=== PATIENT | female | born 1945 | race Caucasian/White ===

== ENCOUNTER 2017-01-09 09:37 | Inpatient (IN) ==
[2017-01-09 10:18] VITALS: BMI 29.7
[2017-01-09 10:51] LABS: BASOPHILS # (AUTO) 0.1 K/uL (0-0.2); BASOPHILS % (AUTO) 0.5 % (0.0-3.0); EOSINOPHILS # (AUTO) 0.2 K/ul (0.0-0.7); EOSINOPHILS % (AUTO) 1.9 % (0.0-7.0); HEMATOCRIT 35.6 % (37.0-47.0); HEMOGLOBIN 11.9 g/dl (12.0-16.0); IMMATURE GRANULOCYTE % (AUTO) 0.5 % (0.0-5.0); LYMPHOCYTES # (AUTO) 1.7 K/uL (0.60-3.4); LYMPHOCYTES % (AUTO) 15.6 (10.0-50.0); MEAN CORPUSCULAR HEMOGLOBIN 29.9 pg (27.0-31.0); MEAN CORPUSCULAR HGB CONC 33.4 (31.8-35.4); MEAN CORPUSCULAR VOLUME 89.4 fl (81.0-99.0); MONOCYTES # (AUTO) 0.5 K/uL (0.4-2.0); MONOCYTES % (AUTO) 4.3 (0-10); NEUTROPHILS # (AUTO) 8.5 K/ul (2.0-6.9); NEUTROPHILS % (AUTO) 77.2; PLATELET COUNT 326 10^3/uL (140-440); RED BLOOD COUNT 3.98 10^6/ul (4.20-5.40); WHITE BLOOD COUNT 11.06 K/ul (4.6-10.2)
[2017-01-09] MEDS ORDERED: NON-FORMULARY MEDICATION (Omega-3 Fatty Acids/Fish Oil [Fish Oil 1,000 Mg Capsule] 1 EACH) PO SCH ×22 (11:00)
[2017-01-09] MEDS ORDERED: NON-FORMULARY MEDICATION (Rosuvastatin Calcium [Crestor] 20 MG) PO SCH ×22 (11:00)
[2017-01-09] MEDS ORDERED: NON-FORMULARY MEDICATION (Fenofibrate Nanocrystallized [Fenofibrate] 145 MG) PO SCH ×22 (11:00)
[2017-01-09 11:29] LABS: ALBUMIN 3.3 g/dL (3.4-5.0); ANION GAP 15.7; BILIRUBIN,TOTAL 0.36 mg/dL (0.00-1.20); BUN/CREATININE RATIO 19.59; CALCIUM 9.1 mg/dL (8.2-10.2); CREATININE 1.48 mg/dL (0.60-1.30); POTASSIUM 3.7 mmol/L (3.5-5.10); TOTAL PROTEIN 6.6 g/dL (5.8-8.1)
[2017-01-09] MEDS: HYDROCHLOROTHIAZIDE PO SCH (13:12)
[2017-01-09] MEDS: ASPIRIN EC PO SCH (13:12)
[2017-01-09] MEDS: PLAVIX PO SCH (13:12)
[2017-01-09] MEDS: ZESTRIL PO SCH (13:12)
[2017-01-09] MEDS: ROCEPHIN 1 GM in SODIUM CHLORIDE 50 ML IV SCH (13:13)
[2017-01-09] MEDS: CLEOCIN PO SCH ×2 (13:16→20:16)
[2017-01-09] MEDS: CELEXA PO SCH (13:16)
[2017-01-09] MEDS: OMEGA-3 FISH OIL PO SCH (13:16)
[2017-01-09] MEDS: TRIGLIDE PO SCH (13:17)
[2017-01-09] MEDS: CRESTOR PO SCH (13:17)
--- NOTE | 2017-01-09 14:43 | DI ---
EXAM: Chest one view, frontal view only. HISTORY: Cough. COMPARISON: 03/26/2016. FINDINGS: The heart size is normal. Atherosclerotic calcifications are present. There is no pulmo nary vascular congestion. The lungs are clear. No pleural effusion or pneumothorax is seen. No ac [place] osseous abnormality is identified. Clips project over the right neck. Since the prior study, t here has been no significant interval change. IMPRESSION: No acute cardiopulmonary process.
[2017-01-09] MEDS ORDERED: INSULIN DETEMIR 100 UNIT SQ SCH (17:00)
[2017-01-09] MEDS: NYSTOP POWDER TP SCH ×2 (17:12→20:16)
[2017-01-09] MEDS: LEVEMIR SUBCUT SCH (17:15)
[2017-01-09] MEDS: DESYREL PO SCH (20:15)
[2017-01-09] MEDS: REMERON PO SCH (20:16)
[2017-01-09] MEDS: HUMULIN R SUBCUT PRN (22:20)
[2017-01-10 05:06] LABS: BASOPHILS # (AUTO) 0.1 K/uL (0-0.2); BASOPHILS % (AUTO) 0.6 % (0.0-3.0); EOSINOPHILS # (AUTO) 0.4 K/ul (0.0-0.7); EOSINOPHILS % (AUTO) 3.6 % (0.0-7.0); HEMATOCRIT 35.2 % (37.0-47.0); HEMOGLOBIN 11.8 g/dl (12.0-16.0); IMMATURE GRANULOCYTE % (AUTO) 0.4 % (0.0-5.0); LYMPHOCYTES # (AUTO) 2.4 K/uL (0.60-3.4); LYMPHOCYTES % (AUTO) 23.5 (10.0-50.0); MEAN CORPUSCULAR HEMOGLOBIN 29.6 pg (27.0-31.0); MEAN CORPUSCULAR HGB CONC 33.5 (31.8-35.4); MEAN CORPUSCULAR VOLUME 88.4 fl (81.0-99.0); MONOCYTES # (AUTO) 0.7 K/uL (0.4-2.0); MONOCYTES % (AUTO) 6.9 (0-10); NEUTROPHILS # (AUTO) 6.6 K/ul (2.0-6.9); PLATELET COUNT 311 10^3/uL (140-440); RED BLOOD COUNT 3.98 10^6/ul (4.20-5.40); WHITE BLOOD COUNT 10.09 K/ul (4.6-10.2)
[2017-01-10 05:30] LABS: ALBUMIN/GLOBULIN RATIO 0.88; BILIRUBIN,TOTAL 0.34 mg/dL (0.00-1.20); BUN/CREATININE RATIO 16.79; CALCIUM 9.3 mg/dL (8.2-10.2); CREATININE 1.31 mg/dL (0.60-1.30); TOTAL PROTEIN 6.4 g/dL (5.8-8.1)
[2017-01-10] MEDS: CLEOCIN PO SCH ×3 (05:38→20:19)
[2017-01-10] MEDS: NON-FORMULARY MEDICATION (Canagliflozin [Invokana] 100 MG) PO SCH (05:39)
[2017-01-10] MEDS: HUMULIN R SUBCUT PRN ×4 (06:08→20:24)
[2017-01-10] MEDS: ZESTRIL PO SCH (08:29)
[2017-01-10] MEDS: HYDROCHLOROTHIAZIDE PO SCH (08:30)
[2017-01-10] MEDS: CRESTOR PO SCH (08:30)
[2017-01-10] MEDS: ASPIRIN EC PO SCH (08:31)
[2017-01-10] MEDS: PLAVIX PO SCH (08:31)
[2017-01-10] MEDS: CELEXA PO SCH (08:31)
[2017-01-10] MEDS: OMEGA-3 FISH OIL PO SCH (08:32)
[2017-01-10] MEDS: NON-FORMULARY MEDICATION (Cinnamon Bark [Cinnamon] 1,000 MG) PO SCH ×2 (08:33→10:05)
[2017-01-10] MEDS: TRIGLIDE PO SCH (08:33)
[2017-01-10] MEDS: NYSTOP POWDER TP SCH ×2 (08:37→20:20)
[2017-01-10] MEDS: ROCEPHIN 1 GM in SODIUM CHLORIDE 50 ML IV SCH (08:42)
--- NOTE | 2017-01-10 08:50 | PCM.PROG ---
Attending Provider: ATTENDING PROVIDER: Dr. JUDITH MONTANEZ DATE OF SERVICE: 01/10/17 SUBJECTIVE: This 71 year old WHITE/ F was hospitalized 01/09/17. The patient is seen with Becky, Nurse Practitioner. The patient is lying in bed resting comfortably with warm compresses to wound. REVIEW OF SYSTEMS: CONSTITUTIONAL: Weakness due to history of CVA. No night sweats. No fever or chills. HEENT: Eyes: No visual changes. No eye pain. No eye discharge. ENT: No runny nose. No epistaxis. No sinus pain. No odynophagia. No congestion. RESPIRATORY: No cough, no congestion. No hemoptysis. No shortness of breath. CARDIOVASCULAR: No angina symptoms. No CHF symptoms. No atypical chest pain for CAD. No palpitations. No orthopnea.. GASTROINTESTINAL: No abdominal pain. No nausea or vomiting. No diarrhea or constipation. No hematemesis. No hematochezia. GENITOURINARY: No urgency. No frequency. No dysuria. No hematuria. No obstructive symptoms. No discharge. No pain. No significant abnormal bleeding. MUSCULOSKELETAL: No musculoskeletal pain; no joint swelling. NEUROLOGICAL: Resting comfortably. No headache. No neck pain. No syncope. No seizures. No dizziness. PSYCHIATRIC: Not anxious. No depression. No suicidal thoughts. No homicidal thoughts. SKIN: Abscess right buttock. ENDOCRINE: No unexplained weight loss. No weight gain. HEMATOLOGIC/LYMPHATIC: No anemia. No purpura. No petechiae. No prolonged or excessive bleeding. No palpable lymph nodes. PHYSICAL EXAMINATION: GENERAL: The patient is lying in bed in no distress. VITAL SIGNS: Temperature 97.9 F, Pulse 78, Respiratory Rate 16, BP 98/64, Pulse Ox 93% HEENT: Head normocephalic, atraumatic. Eyes: Extraocular muscles are intact. Pupils are equal, round and reactive to light and accommodation. Ears: No lesions. Nose appeared normal. Throat: No exudate or erythema. NECK: Supple. No JVD, no carotid bruit. No lymphadenopathy or thyromegaly. LUNGS: Diminished breath sounds bilaterally. Clear to auscultation. Percussion note normal. Chest symmetrical. HEART: S1, S2, no S3. No murmurs. No cyanosis or clubbing. No ascites. Pulses: Dorsalis pedis and posterior tibial pulses +1 to +2 both sides. ABDOMEN: Soft. Non-tender. Bowel sounds active. No CVA tenderness. No mass felt. Abscess right buttock 1" diameter, induration with bloody exudate and localized erythema. EXTREMITIES: No edema. Full range of motion of all extremities, equal. NEUROLOGIC: No focal deficit. Cranial nerves II through XII are grossly intact. No headache, no double vision or headache. SKIN: Not dry. Turgor-normal. LYMPHATIC: No palpable lymph nodes/no lymphedema. MUSCULOSKELETAL: Normal joints with no swelling. Muscle tone is normal. LAB REVIEW: 01/10/17 05:01 01/10/17 05:01 01/10/17 05:01: WBC 10.09, RBC 3.98 L, Hgb 11.8 L, Hct 35.2 L, MCV 88.4, MCH 29.6, MCHC 33.5, RDW Coeff of Consuelo 14.4, Plt Count 311, Immature Gran % (Auto) 0.4, Neut % (Auto) 65.0, Lymph % (Auto) 23.5, [place] % (Auto) 6.9, Eos % (Auto) 3.6, Baso % (Auto) 0.6, Immature Gran # (Auto) 0.0, Neut # 6.6, Lymph # 2.4, [place] # 0.7, Eos # 0.4, Baso # 0.1, Sodium 138, Potassium 4.0, Chloride 104, Carbon Dioxide 23, Anion Gap 15.0, BUN 22 H, Creatinine 1.31 H, Estimated GFR ( MDRD) 40.00, BUN/Creatinine Ratio 16.79, Glucose 163 H D, Calcium 9.3, Total Bilirubin 0.34, AST 15, ALT 21, Alkaline Phosphatase 63, Total Protein 6.4, Albumin 3.0 L, Globulin 3.4, Albumin/Globulin Ratio 0.88 01/09/17 10:45: WBC 11.06 H, RBC 3.98 L, Hgb 11.9 L, Hct 35.6 L, MCV 89.4, MCH 29.9, MCHC 33.4, RDW Coeff of Consuelo 14.6, Plt Count 326, Immature Gran % (Auto) 0.5, Neut % (Auto) 77.2, Lymph % (Auto) 15.6, [place] % (Auto) 4.3, Eos % (Auto) 1.9, Baso % (Auto) 0.5, Immature Gran # (Auto) 0.1, Neut # 8.5 H, Lymph # 1.7, [place] # 0.5, Eos # 0.2, Baso # 0.1, Sodium 139, Potassium 3.7, Chloride 105, Carbon Dioxide 22 L, Anion Gap 15.7, BUN 29 H, Creatinine 1.48 H, Estimated GFR (MDRD) 35.00, BUN/Creatinine Ratio 19.59, Glucose 243 H, Hemoglobin A1c 8.7 H, Calcium 9.1, Total Bilirubin 0.36, AST 17, ALT 26, Alkaline Phosphatase 69, Total Protein 6.6, Albumin 3.3 L, Globulin 3.3, Albumin/Globulin Ratio 1.00, TSH 2.828, Free T4 0.86 ASSESSMENT: 1. Abscess right buttock 2. Chronic kidney disease 3. Diabetes mellitus Type 2 PLAN: 1. IV fluids D5 1/2 40 mL/hr. 2. Warm compresses to wound. Plan and coordination of the patient's care discussed in the presence of Overcoiler and nurse. CONDITION: Stable SCRIBED BY: ROSLYN LLOYD Quarter Section Ironer scribed while in presence of service performed by Dr. JUDITH MONTANEZ/BECKY MEJIA APRN on 01/10/17 ([id number])
[2017-01-10] MEDS ORDERED: NON-FORMULARY MEDICATION (Cinnamon Bark [Cinnamon] 500 MG) PO SCH (09:00)
--- NOTE | 2017-01-10 10:00 | HP ---
DATE OF SERVICE: 01/09/17 REASON FOR HOSPITALIZATION/HISTORY OF PRESENT ILLNESS: Sore on bottom right buttocks, bleeding and sore present since Monday. No fever. REVIEW OF SYSTEMS: CONSTITUTIONAL: No fever, no fatigue. HEENT: No sinus drainage, no sore throat. RESPIRATORY: No cough, no congestion. CARDIOVASCULAR: No atypical chest pain for coronary artery disease. No angina , CHF symptoms, palpitations or shortness of breath. GASTROINTESTINAL: No melena or abdominal pain. No GERD. GENITOURINARY: No hematuria, no prostatism, no polyuria. GOLF BALL TRIMMER: No blackout, no dizziness, no headache, no double vision. GAIT: wheelchair. MUSCULOSKELETAL: Osteoarthritis pain, no joint swelling. ENDOCRINE: No weight loss, no weight gain. SKIN: Not dry, no rash. Boil PSYCHIATRIC: Not anxious, no depression, no suicidal thoughts, no homicidal thoughts. SOCIAL HISTORY: Marital Status: . Alcohol Usage: No. Tobacco Usage: Quit. Family history; father , mother , brother 2 and sister 1. MEDICAL/SURGICAL HISTORY: Balloon angioplasty Tumor leg left Tubal ligation Stent CVA left Hemiparesis CEA Chronic kidney disease Diabetes mellitus type 2 Dyslipidemia Hypertension Coronary artery disease with stent Depression MEDICATIONS: Crestor 20mg PO daily Clopidogrel 75mg PO daily Levemir Flexpen inject 100unl by subcut route as per insulin sliding scale protocol at supper Trazodone 50mg Po daily Lisinopril 5mg PO daily TriCor 145mg PO daily Hydrochlorothiazide 25mg 1/2 tablet PO daily Celexa 20mg take one and half tablet PO daily Invokana 100mg PO daily before first meal of the day Mirtazapine 15mg PO daily before bedtime Fish oil 1000mg six times per day Aspirin 81mg PO daily Vitamin D 50,000 Wed. ALLERGIES: Erythromycin PHYSICAL EXAMINATION: V/S: Pulse 90, blood pressure 100/60, temperature 98.2, O2 sat 95%. GENERAL APPEARANCE: Oriented times three. HEENT: Normal. NECK: No JVP, no bruits. RESPIRATORY: Decreased breath sounds. CARDIOVASCULAR: S1, S2, no S3, no murmurs. No cyanosis, clubbing. No ascites. GI/ABDOMEN: No tenderness. Bowel sounds are active. Firm, tender 1" area of induration right buttock bloody drainage. EXTREMITIES: edema, pulses +1, equal. GOLF BALL TRIMMER: Deep tendon reflexes, sensory, motor and gait all normal. RECTAL: colonoscopy refused. PELVIC: Advised yearly, mammogram refused/ Foot care discussed and refused Colocare . LABS: Sodium 139, potassium 3.7, CO2 22, BUN 29, creatinine 1.48, glucose 243, AST 17 , ALT 26, Albumin 3.3, total protein 6.6, Globulin 3.3, TSH 2.828, Alkaline phosphatase 69. HgbA1c 8.7, WBC 11.06, RBC 3.98, hgb 11.9, hct 35.7, plt count 326. The patient has a wound for which there should be doing a wound culture sensitivity on the right lower buttock. ASSESSMENT: 1. 1" abscess right buttock erythema surrounding area. 2. Met syndrome 3. Hypertension 4. CAD with stent 5. Dyslipidemia 6. Diabetes Mellitus type 2 A1c 10.6 7. CVA left hemiparesis and left foot drop 8. Depression 9. Chronic kidney disease, stage 3 10.CEA, right 11.Restless leg syndrome 12.Vitamin B12 deficiency PLAN: 1. Admit regular 2. Telemetry 3. ADA diet 4. X-ray chest 5. EKG today 6. IV Rocephin 1 gram IV Q 24 hours 7. Clindamycin 300mg Three times daily 8. Wound drainage Culture and Sensitivity 9. Continue all home medications 10.Hot pack four times a day 11.CBC, CMP today and daily AM 12.TSH/T4 and A1c TIME SPENT: More than 70 minutes. MTDD
[2017-01-10] MEDS: DEXTROSE 5%-1/2NS IV SOLUTION 1,000 ML IV SCH (10:10)
[2017-01-10] MEDS: ZINC-220 PO SCH (12:54)
[2017-01-10] MEDS: VITAMIN C PO SCH (12:54)
--- NOTE | 2017-01-10 15:11 | PN ---
DATE OF SERVICE: 01/10/17 SUBJECTIVE: The patient was admitted with abscess of the right buttock. The area is draining. The erythematous area is much smaller than before. The patient is afebrile. REVIEW OF SYSTEMS: CONSTITUTIONAL: No night sweats. No fatigue, malaise, lethargy. No fever or chills. HEENT: Eyes: No visual changes. No eye pain. No eye discharge. ENT: No runny nose. No epistaxis. No sinus pain. No sore throat. No odynophagia. No congestion. RESPIRATORY: No cough, no congestion. No hemoptysis. No shortness of breath. CARDIOVASCULAR: No angina symptoms. No CHF symptoms. No atypical chest pain for CAD. No palpitations. No orthopnea. GASTROINTESTINAL: No abdominal pain. No nausea or vomiting. No diarrhea or constipation. No hematemesis. No hematochezia. GENITOURINARY: No urgency. No frequency. No dysuria. No hematuria. No obstructive symptoms. No discharge. No pain. No significant abnormal bleeding. MUSCULOSKELETAL: No musculoskeletal pain; no joint swelling. NEUROLOGICAL: No headache. No neck pain. No syncope. No seizures. No dizziness. PSYCHIATRIC: Not anxious. No depression. No suicidal thoughts. No homicidal thoughts. SKIN: No rash. No lesions. No wounds. ENDOCRINE: No unexplained weight loss. No weight gain. HEMATOLOGIC/LYMPHATIC: No anemia. No purpura. No petechiae. No prolonged or excessive bleeding. No palpable lymph nodes. PHYSICAL EXAMINATION: GENERAL: The patient is , lying/sitting in bed in no distress. VITAL SIGNS: Temperature 97.9, pulse 78, respiratory 16, blood pressure 98/64, pulse ox 93%. HEENT: Head normocephalic, atraumatic. Eyes: Extraocular muscles are intact. Pupils are equal, round and reactive to light and accommodation. Ears: No lesions. Nose appeared normal. Throat: No exudate or erythema. NECK: Supple. No JVD, no carotid bruit. No lymphadenopathy or thyromegaly. LUNGS: Clear to auscultation. Percussion note normal. Chest symmetrical. HEART: S1, S2, no S3. No murmurs. No cyanosis or clubbing. No ascites. Pulses: Dorsalis pedis and posterior tibial pulses +1 to +2 both sides. ABDOMEN: Soft. Nontender. Bowel sounds active. No CVA tenderness. No mass felt. EXTREMITIES: No edema. Full range of motion of all extremities, equal. NEUROLOGIC: No focal deficit. Cranial nerves II through XII are grossly intact. No headache, no double vision or headache. SKIN: The abscess seems to be decreasing in size and draining. LYMPHATIC: No palpable lymph nodes/no lymphedema. MUSCULOSKELETAL: Normal joints with no swelling. Muscle tone is normal. LABS: The WBC count is 10,000 with a hemoglobin of 11.8, hematocrit 35, creatinine 1.3, BUN 22. ASSESSMENT: Abscess of right buttock. PLAN: 1. Culture and sensitivity to be done. 2. Continue antibiotics as prescribed. CONDITION: Stable. The patient was seen and examined with the nurse practitioner and patient case coordinator. TIME SPENT: More than 30 minutes. TOYIN
[2017-01-10] MEDS: LEVEMIR SUBCUT SCH (17:26)
[2017-01-10] MEDS: REMERON PO SCH (20:19)
[2017-01-10] MEDS: DESYREL PO SCH (20:20)
[2017-01-11 05:16] LABS: BASOPHILS # (AUTO) 0.1 K/uL (0-0.2); BASOPHILS % (AUTO) 0.6 % (0.0-3.0); EOSINOPHILS # (AUTO) 0.5 K/ul (0.0-0.7); EOSINOPHILS % (AUTO) 5.6 % (0.0-7.0); HEMOGLOBIN 11.6 g/dl (12.0-16.0); IMMATURE GRANULOCYTE % (AUTO) 0.3 % (0.0-5.0); LYMPHOCYTES # (AUTO) 2.4 K/uL (0.60-3.4); LYMPHOCYTES % (AUTO) 27.5 (10.0-50.0); MEAN CORPUSCULAR HEMOGLOBIN 29.4 pg (27.0-31.0); MEAN CORPUSCULAR HGB CONC 33.1 (31.8-35.4); MEAN CORPUSCULAR VOLUME 88.8 fl (81.0-99.0); MONOCYTES # (AUTO) 0.6 K/uL (0.4-2.0); MONOCYTES % (AUTO) 6.8 (0-10); NEUTROPHILS # (AUTO) 5.2 K/ul (2.0-6.9); NEUTROPHILS % (AUTO) 59.2; PLATELET COUNT 302 10^3/uL (140-440); RED BLOOD COUNT 3.94 10^6/ul (4.20-5.40); WHITE BLOOD COUNT 8.86 K/ul (4.6-10.2)
[2017-01-11 05:34] LABS: ALBUMIN 2.9 g/dL (3.4-5.0); ALBUMIN/GLOBULIN RATIO 0.81; ANION GAP 19.1; BILIRUBIN,TOTAL 0.34 mg/dL (0.00-1.20); BUN/CREATININE RATIO 15.94; CALCIUM 9.3 mg/dL (8.2-10.2); CREATININE 1.38 mg/dL (0.60-1.30); POTASSIUM 4.1 mmol/L (3.5-5.10); TOTAL PROTEIN 6.5 g/dL (5.8-8.1)
[2017-01-11] MEDS: CLEOCIN PO SCH ×3 (05:44→20:47)
[2017-01-11] MEDS: HUMULIN R SUBCUT PRN ×3 (05:44→20:48)
[2017-01-11] MEDS: NON-FORMULARY MEDICATION (Canagliflozin [Invokana] 100 MG) PO SCH (05:44)
[2017-01-11] MEDS ORDERED: DRISDOL PO SCH (09:00)
[2017-01-11] MEDS ORDERED: NON-FORMULARY MEDICATION (Cholecalciferol (Vitamin D3) [Vitamin D3] 50,000 UNIT) PO SCH (09:00)
[2017-01-11] MEDS: TRIGLIDE PO SCH (09:21)
[2017-01-11] MEDS: ROCEPHIN 1 GM in SODIUM CHLORIDE 50 ML IV SCH (09:21)
[2017-01-11] MEDS: NYSTOP POWDER TP SCH ×2 (09:21→20:47)
[2017-01-11] MEDS: CELEXA PO SCH (09:22)
[2017-01-11] MEDS: PLAVIX PO SCH (09:22)
[2017-01-11] MEDS: CRESTOR PO SCH (09:23)
[2017-01-11] MEDS: ZESTRIL PO SCH (09:23)
[2017-01-11] MEDS: HYDROCHLOROTHIAZIDE PO SCH (09:23)
[2017-01-11] MEDS: ASPIRIN EC PO SCH (09:24)
[2017-01-11] MEDS: OMEGA-3 FISH OIL PO SCH (09:24)
[2017-01-11] MEDS: NON-FORMULARY MEDICATION (Cinnamon Bark [Cinnamon] 1,000 MG) PO SCH (09:32)
[2017-01-11] MEDS: VITAMIN C PO SCH (09:33)
[2017-01-11] MEDS: ZINC-220 PO SCH (09:33)
[2017-01-11] MEDS: DEXTROSE 5%-1/2NS IV SOLUTION 1,000 ML IV SCH ×2 (11:34→14:25)
[2017-01-11] MEDS: LEVEMIR SUBCUT SCH (16:49)
[2017-01-11] MEDS: REMERON PO SCH (20:47)
[2017-01-11] MEDS: DESYREL PO SCH (20:47)
[2017-01-12 06:01] LABS: BASOPHILS # (AUTO) 0.1 K/uL (0-0.2); BASOPHILS % (AUTO) 0.7 % (0.0-3.0); EOSINOPHILS # (AUTO) 0.5 K/ul (0.0-0.7); EOSINOPHILS % (AUTO) 5.4 % (0.0-7.0); HEMATOCRIT 38.6 % (37.0-47.0); HEMOGLOBIN 12.8 g/dl (12.0-16.0); IMMATURE GRANULOCYTE % (AUTO) 0.6 % (0.0-5.0); LYMPHOCYTES # (AUTO) 2.7 K/uL (0.60-3.4); LYMPHOCYTES % (AUTO) 27.3 (10.0-50.0); MEAN CORPUSCULAR HEMOGLOBIN 29.6 pg (27.0-31.0); MEAN CORPUSCULAR HGB CONC 33.2 (31.8-35.4); MEAN CORPUSCULAR VOLUME 89.4 fl (81.0-99.0); MONOCYTES # (AUTO) 0.7 K/uL (0.4-2.0); MONOCYTES % (AUTO) 7.1 (0-10); NEUTROPHILS # (AUTO) 5.8 K/ul (2.0-6.9); NEUTROPHILS % (AUTO) 58.9; PLATELET COUNT 351 10^3/uL (140-440); RED BLOOD COUNT 4.32 10^6/ul (4.20-5.40); WHITE BLOOD COUNT 9.88 K/ul (4.6-10.2)
[2017-01-12] MEDS: NON-FORMULARY MEDICATION (Canagliflozin [Invokana] 100 MG) PO SCH (06:19)
[2017-01-12] MEDS: CLEOCIN PO SCH ×2 (06:19→12:45)
[2017-01-12] MEDS: HUMULIN R SUBCUT PRN ×2 (06:22→11:19)
[2017-01-12 06:27] LABS: ALBUMIN 3.3 g/dL (3.4-5.0); ALBUMIN/GLOBULIN RATIO 0.87; ANION GAP 20.2; BILIRUBIN,TOTAL 0.25 mg/dL (0.00-1.20); BUN/CREATININE RATIO 17.48; CALCIUM 10.1 mg/dL (8.2-10.2); CREATININE 1.43 mg/dL (0.60-1.30); POTASSIUM 4.2 mmol/L (3.5-5.10); TOTAL PROTEIN 7.1 g/dL (5.8-8.1)
[2017-01-12] MEDS: NON-FORMULARY MEDICATION (Cinnamon Bark [Cinnamon] 1,000 MG) PO SCH (08:10)
[2017-01-12] MEDS: CRESTOR PO SCH (08:10)
[2017-01-12] MEDS: CELEXA PO SCH (08:11)
[2017-01-12] MEDS: OMEGA-3 FISH OIL PO SCH (08:11)
[2017-01-12] MEDS: TRIGLIDE PO SCH (08:11)
[2017-01-12] MEDS: ZINC-220 PO SCH (08:11)
[2017-01-12] MEDS: PLAVIX PO SCH (08:11)
[2017-01-12] MEDS: HYDROCHLOROTHIAZIDE PO SCH (08:12)
[2017-01-12] MEDS: ZESTRIL PO SCH (08:12)
[2017-01-12] MEDS: VITAMIN C PO SCH (08:13)
[2017-01-12] MEDS: ASPIRIN EC PO SCH (08:13)
[2017-01-12] MEDS: NYSTOP POWDER TP SCH (08:13)
--- NOTE | 2017-01-12 10:29 | PCM.PROG ---
Attending Provider: ATTENDING PROVIDER: Dr. JUDITH MONTANEZ DATE OF SERVICE: 01/11/17 SUBJECTIVE: This 71 year old WHITE/ F was hospitalized 01/09/17. The patient is hospitalized with abscess of right buttock. REVIEW OF SYSTEMS: CONSTITUTIONAL: No night sweats. No fatigue, malaise, lethargy. No fever or chills. HEENT: Eyes: No visual changes. No eye pain. No eye discharge. ENT: No runny nose. No epistaxis. No sinus pain. No odynophagia. No congestion. RESPIRATORY: No cough, no congestion. No hemoptysis. No shortness of breath. CARDIOVASCULAR: No angina symptoms. No CHF symptoms. No atypical chest pain for CAD. No palpitations. No orthopnea.. GASTROINTESTINAL: No abdominal pain. No nausea or vomiting. No diarrhea or constipation. No hematemesis. No hematochezia. GENITOURINARY: No urgency. No frequency. No dysuria. No hematuria. No obstructive symptoms. No discharge. No pain. No significant abnormal bleeding. MUSCULOSKELETAL: No musculoskeletal pain; no joint swelling. NEUROLOGICAL: Awake, alert, oriented to time, place and person. No headache. No neck pain. No syncope. No seizures. No dizziness. PSYCHIATRIC: Not anxious. No depression. No suicidal thoughts. No homicidal thoughts. SKIN: No rash. Abscess right buttock. ENDOCRINE: No unexplained weight loss. No weight gain. HEMATOLOGIC/LYMPHATIC: No anemia. No purpura. No petechiae. No prolonged or excessive bleeding. No palpable lymph nodes. PHYSICAL EXAMINATION: GENERAL: The patient is awake, alert and oriented, lying/sitting in bed in no distress. VITAL SIGNS: Temperature 96.8 F, Pulse 78, Respiratory Rate 20, BP 95/53, Pulse Ox 91% HEENT: Head normocephalic, atraumatic. Eyes: Extraocular muscles are intact. Pupils are equal, round and reactive to light and accommodation. Ears: No lesions. Nose appeared normal. Throat: No exudate or erythema. NECK: Supple. No JVD, no carotid bruit. No lymphadenopathy or thyromegaly. LUNGS: Clear to auscultation. Percussion note normal. Chest symmetrical. HEART: S1, S2, no S3. No murmurs. No cyanosis or clubbing. No ascites. Pulses: Dorsalis pedis and posterior tibial pulses +1 to +2 both sides. ABDOMEN: Soft. Non-tender. Bowel sounds active. No CVA tenderness. No mass felt. EXTREMITIES: No edema. Full range of motion of all extremities, equal. NEUROLOGIC: No focal deficit. Cranial nerves II through XII are grossly intact. No headache, no double vision or headache. SKIN: Not dry. Turgor-normal. The size of abscess right buttock seems to be contained with less drainage, less erythema. LYMPHATIC: No palpable lymph nodes/no lymphedema. MUSCULOSKELETAL: Normal joints with no swelling. Muscle tone is normal. LAB REVIEW: 01/11/17 05:11 01/11/17 05:11 01/11/17 05:11: WBC 8.86, RBC 3.94 L, Hgb 11.6 L, Hct 35.0 L, MCV 88.8, MCH 29.4 , MCHC 33.1, RDW Coeff of Consuelo 14.4, Plt Count 302, Immature Gran % (Auto) 0.3, Neut % (Auto) 59.2, Lymph % (Auto) 27.5, [place] % (Auto) 6.8, Eos % (Auto) 5.6, Baso % (Auto) 0.6, Immature Gran # (Auto) 0.0, Neut # 5.2, Lymph # 2.4, [place] # 0.6, Eos # 0.5, Baso # 0.1, Sodium 138, Potassium 4.1, Chloride 103, Carbon Dioxide 20 L, Anion Gap 19.1, BUN 22 H, Creatinine 1.38 H, Estimated GFR (MDRD) 38.00, BUN/Creatinine Ratio 15.94, Glucose 176 H, Calcium 9.3, Total Bilirubin 0.34, AST 14 L, ALT 22, Alkaline Phosphatase 55, Total Protein 6.5, Albumin 2.9 L, Globulin 3.6, Albumin/Globulin Ratio 0.81 ASSESSMENT: 1. Abscess right buttock seems resolving 2. Diabetes mellitus, Type 2, under control 3. Chronic kidney disease PLAN: 1. Continue Clindamycin and Rocephin, gram negative Cocci Plan and coordination of the patient's care discussed in the presence of Wet Process Miller Head Assistant and nurse. CONDITION: Stable SCRIBED BY: ROSLYN LLOYD Nursing Aide scribed while in presence of service performed by Dr. JUDITH MONTANEZ on 01/11/17 ([id number])
[2017-01-12 10:56] VITALS: BP 124/62; TEMP 98.1
--- NOTE | 2017-01-12 14:08 | CM.DICTOOL ---
ADMISSION: 01/09/17 09:37 DISCHARGE: 01/12/17 DATE OF SERVICE: 01/12/17 FINAL DIAGNOSIS ABSCESS RIGHT BUTTOCK-MRSA CHRONIC RENAL FAILURE ANEMIA CAD S/P STENT APPLICATIONS HYPERTENSION DYSLIPIDEMIA CVA WITH LEFT HEMIPARESIS DM, TYPE 2 OSTEOARTHRITIS ANXIETY/DEPRESSION CABG CAROTID ENDARTERECTOMY LAST VITALS Temp Pulse Resp BP Pulse Ox 97.1 F L 86 16 125/71 92 L 01/12/17 05:28 01/12/17 05:28 01/12/17 05:28 01/12/17 05:28 01/12/17 05:28 ACTIVE MEDICATIONS Aspirin (Aspirin Ec) 81 mg PO DAILYWM [facility] Last Admin: 01/12/17 08:13 Dose: 81 mg Citalopram Hydrobromide (Celexa) 30 mg PO DAILY [facility] Last Admin: 01/12/17 08:11 Dose: 30 mg Clindamycin HCl (Cleocin) 300 mg PO Q8HR [facility] (NEW PRESCRIPTION) Last Admin: 01/12/17 06:19 Dose: 300 mg Clopidogrel Bisulfate (Plavix) 75 mg PO DAILY [facility] Last Admin: 01/12/17 08:11 Dose: 75 mg Ergocalciferol (Drisdol) 50,000 unit PO WEEKLY [facility] Last Admin: 01/11/17 09:21 Dose: 50,000 unit Fenofibrate (Triglide) 160 mg PO DAILY [facility] Last Admin: 01/12/17 08:11 Dose: 160 mg Fish Oil ([facility] [place]-3 Fish Oil) 1,000 mg PO DAILY [facility] Last Admin: 01/12/17 08:11 Dose: 1,000 mg Hydrochlorothiazide (Hydrochlorothiazide) 12.5 mg PO DAILY [facility] Last Admin: 01/12/17 08:12 Dose: 12.5 mg Insulin Detemir (Levemir) 100 unit SUBCUT QPM [facility] Last Admin: 01/11/17 16:49 Dose: 100 unit Lisinopril (Zestril) 5 mg PO DAILY [facility] Last Admin: 01/12/17 08:12 Dose: 5 mg Mirtazapine (Remeron) 15 mg PO BEDTIME [facility] Last Admin: 01/11/17 20:47 Dose: 15 mg Non-Formulary Medication (Canagliflozin [Invokana]) 100 mg PO QDAC [facility] Last Admin: 01/12/17 06:19 Dose: 100 mg Non-Formulary Medication (Cinnamon Bark [Cinnamon]) 1,000 mg PO DAILY [facility] Last Admin: 01/12/17 08:10 Dose: 1,000 mg Rosuvastatin Calcium (Crestor) 20 mg PO DAILY [facility] Last Admin: 01/12/17 08:10 Dose: 20 mg Trazodone HCl (Desyrel) 50 mg PO BEDTIME [facility] Last Admin: 01/11/17 20:47 Dose: 50 mg ALLERGIES erythromycin base Adverse Reaction (Unknown, Verified 01/09/17 12:43) NEW PRESCRIPTIONS: BACTROBAN 1 APPLICATION TO A CLEAN RIGHT BUTTOX ABSCESS AREA TWICE DAILY CLINDAMYCIN 300 MG, TAKE ONE CAPSULE BY MOUTH THREE TIMES DAILY FOR 10 DAYS SMOKING: FORMER SMOKER NONE NOW DISEASE SPECIFIC EDUCATION: ABSCESS MRSA HOME MEDICATIONS NEW PRESCRIPTIONS WOUND CARE AND REFERRAL TO [facility] FOLLOW UP LAB REVIEW: 01/12/17 05:30 01/12/17 05:30 01/12/17 05:30: WBC 9.88, RBC 4.32, Hgb 12.8, Hct 38.6, MCV 89.4, MCH 29.6, MCHC 33.2, RDW Coeff of Consuelo 14.4, Plt Count 351, Immature Gran % (Auto) 0.6, Neut % (Auto) 58.9, Lymph % (Auto) 27.3, [place] % (Auto) 7.1, Eos % (Auto) 5.4, Baso % (Auto) 0.7, Immature Gran # (Auto) 0.1, Neut # 5.8, Lymph # 2.7, [place] # 0.7, Eos # 0.5, Baso # 0.1, Sodium 138, Potassium 4.2, Chloride 102, Carbon Dioxide 20 L, Anion Gap 20.2, BUN 25 H, Creatinine 1.43 H, Estimated GFR (MDRD) 36.00, BUN/Creatinine Ratio 17.48, Glucose 190 H, Calcium 10.1, Total Bilirubin 0.25, AST 18, ALT 28, Alkaline Phosphatase 63, Total Protein 7.1, Albumin 3.3 L , Globulin 3.8, Albumin/Globulin Ratio 0.87 PLAN: DISCHARGE HOME TODAY RETURN TO SEE DR. MONTANEZ NEXT WEEK. PLEASE PHONE HIS OFFICE TO SCHEDULE YOUR FOLLOW UP APPOINTMENT ([phone]) [facility] WILL NOTIFY YOU OF YOUR APPOINTMENT TIME AND DATE FOR CARE OF YOUR ABSCESS RESUME YOUR HOME MEDICATIONS PER LIST PROVIDED BY THE NURSING STAFF NEW PRESCRIPTIONS: BACTROBAN 1 APPLICATION TO A CLEAN RIGHT BUTTOX ABSCESS AREA TWICE DAILY CLINDAMYCIN 300 MG, TAKE ONE CAPSULE BY MOUTH THREE TIMES DAILY FOR 10 DAYS ACTIVITY: GET PLENTY OF REST AT HOME. GRADUALLY INCREASE YOUR ACTIVITY LEVEL ACCORDING TO YOUR TOLERATION DIET: CONSISTENT CARBS SUMMARY: THE PATIENT IS ALERT AND ORIENTED X3. SHE CURRENTLY RESIDES AT HOME WITH HER DAUGHTER. SHE REQUIRES LITTLE ASSISTANCE FOR ADL'S DUE TO HER REMOTE HISTORY OF CVA WITH LEFT SIDE PARESIS. SHE USES A QUAD CANE TO ASSIST WITH AMBULATION. SHE HAS A WHEELCHAIR, WALKER, BEDSIDE COMMODE AND SHOWER CHAIR. SHE DECLINES REFERRAL FOR HOMEMAKING SERVICES AND DOES NOT UTILIZE HOME HEALTH SERVICES. SHE DESIRES TO RETURN HOME AT DISCHARGE. THE ABSCESSED AREA TO THE RIGHT BUTTOX IS IMPROVED FROM ADMISSION. THE DRAINAGE IS MINIMAL AND SERO-SANGUINOUS. WE WILL CONTINUE TO TREAT THE MRSA FOUND WITH CULTURE AND SENSITIVITY DURING THIS STAY. THE AREA IS APPROX 2 CM AND IRREGULARLY SHAPED WITH PINK SKIN. THERE IS NO EXCESSIVE WARMTH OR INDURATION NOTED. MR. RUSS SAYS THE SORENESS HAS ALSO IMPROVED. OTHERWISE THERE ARE NO DECUBITUS ULCERS PRESENT AT DISCHARGE. MS. RUSS IS AWARE AND AGREEABLE FOR TODAY'S DISCHARGE PLANS. SHE IS AFEBRILE AND HAS STABLE V/S. SHE IS AWARE OF HER FOLLOW UP AND OTHER DISCHARGE INSTRUCTIONS. ADRIAN MEJIA APRN JUDITH MONTANEZ M.D.
--- NOTE | 2017-01-18 11:53 | PN ---
01/09/17: Level 5 01/10/17: Intermediate 01/11/17: Intermediate 01/12/14: D as in discharge MTDD
--- NOTE | 2017-01-18 11:57 | PN ---
DATE OF SERVICE: 01/12/17 SUBJECTIVE: The patient is a 71 year old white female had a abscess on the right buttock which has practically healing up with healthy granulation tissue at the base. No erythema present. The patient will be discharged on Clindamycin and Bactroban. PHYSICAL EXAMINATION: HEENT: Head normocephalic, atraumatic. Eyes: Extraocular muscles are intact. Pupils are equal, round and reactive to light and accommodation. Ears: No lesions. Nose appeared normal. Throat: No exudate or erythema. NECK: Supple. No JVD, no carotid bruit. No lymphadenopathy or thyromegaly. LUNGS: Clear to auscultation. Percussion note normal. Chest symmetrical. HEART: S1, S2, no S3. No murmurs. No cyanosis or clubbing. No ascites. Pulses: Dorsalis pedis and posterior tibial pulses +1 to +2 both sides. ABDOMEN: Soft. Nontender. Bowel sounds active. No CVA tenderness. No mass felt. EXTREMITIES: No edema. Full range of motion of all extremities, equal. NEUROLOGIC: No focal deficit. Cranial nerves II through XII are grossly intact. No headache, no double vision or headache. SKIN: Not dry. Intact. Turgor - normal. LYMPHATIC: No palpable lymph nodes/no lymphedema. MUSCULOSKELETAL: Normal joints with no swelling. Muscle tone is normal. LABS: WBC 9,800. The patient grew staph sensitive to clindamycin. PLAN: 1. Explained about how to take care of. Daughter is very help. 2. Blood sugar is more or less well controlled at present time. Discussed the diabetes and the infection in detail. 3. The patient is also going to be followed by Wound Care at [facility] CONDITION: Stable. The patient was seen and examined with Nurse Practitioner and Tube Winder. TIME SPENT: More than 30 minutes. Plan and coordination of the patient's care discussed in the presence of nurse. TOYIN
--- NOTE | 2017-01-19 07:40 | DS ---
DATE OF SERVICE: 01/12/17 FINAL DIAGNOSIS: 1. Abscess right buttock-MRSA 2. Chronic renal failure 3. Anemia 4. CAD status post stent application 5. Hypertension 6. Dyslipidemia 7. CVA with left hemiparesis 8. Diabetes Mellitus type 2 9. Osteoarthritis 10.Anxiety/Depression 11.CABG 12.Carotid endarterectomy LAST VITALS: Temperature 97.1, pulse 86, respiratory rate 16, blood pressure 125/71 and pulse ox 92%. DISCHARGE INSTRUCTIONS: Discharge home today. Return to see Dr. Mullen next week. [facility] will notify of appointment time and date for care of abscess. Resume home medications as per list provided by the nursing staff. MEDICATIONS AT DISCHARGE: Aspirin 81mg PO daily Celexa 30mg PO daily Cleocin 300mg PO Q 8 hours Plavix 75mg PO daily Drisdol 50,000 unit PO weekly Triglide 160mg PO daily [place]-3 Fish Oil 1,000mg PO daily Hydrochlorothiazide 12.5mg PO daily Levemir 100unit SUBCUT QPM Zestril 5mg PO daily Remeron 15mg PO bedtime Invokana 100mg PO QDAC Cinnamon 1,000mg PO daily Crestor 20mg PO daily Desyrel 50mg PO bedtime ALLERGIES: Erythromycin NEW PRESCRIPTIONS: Bactroban 1 application to a clean right buttock abscess area twice daily Clindamycin 300mg take one capsule by mouth three times daily for 10 days. DIET INSTRUCTIONS: Consistent Carbs. ACTIVITY: Get plenty of rest at home. Gradually increase activity level according to toleration SMOKING: Former smoker None now DISEASE SPECIFIC EDUCATION: Abscess MRSA Home Medications New Prescriptions Wound Care and Referral to [facility] Followup HOSPITAL COURSE: This is a 71 year old female who presented to the office with a boil on her right buttock. The daughter had stated that it had been present and started on Monday the weekend before and had since then gotten bigger and started draining. She has serosanguineous and bloody drainage from the wound, she said it was sore. She had not been running any fever. This patient spends most of her time spitting. it did not appear that this was a pressure ulcer just an actual abscess but due to the fact that she has limited range of motion from her previous stroke we admitted her and started her on IV Rocephin and Clindamycin 300mg three times a day. Warm compresses were applied four times a day and the wound continued to drain. Today on the day of discharge the area significantly improved. On admission she had approximately a 1in diameter abscess of induration with some surrounding erythema on her buttocks. Today on the day of discharge the area is approximately 2cm induration with scant amount of serosanguineous drainage, no surrounding erythema and it is localized and light pink. The tenderness as improved and swelling as improved. I do not believe there is any tunneling. She will be sent home on Clindamycin PO three times a day 300mg for the next 10 days. Again the patient does have left sided weakness due to CVA, she wears a brace on her left leg and sits most of the time. She also has a left arm contracture and is diabetes so we will consult Wound Care as an outpatient which she will see next Monday and Monday and then we will followup with her in office. If signs or symptoms are to change she is to return to the Emergency Room. Her white count remained stable while here. Today on the day of discharge it is 9.8, hgb 12.8, hct 38.6 and plt count 351. She does have chronic kidney disease and kidney function has been stable. BUN 25 today, creatinine 1.43, sodium 138, potassium 4.2. We will also discharge her home on Bactroban to be applied.Her daughter is her main caregiver. She has been eating 100% of her meals. We will instruct them to continue with warm compress to promote drainage as needed but again the area is significantly improved after two days of IV antibiotics. We will followup with her closely in the office. Vital signs today were stable with temperature 97.1, heart rate 86, respirations 16, blood pressure 125/71. TIME SPENT: More than 60 minutes. [facility]
== END 2017-01-12 13:45 | disposition home or self-care (01) | DRG 603 ==
LOC: MEDSURG B 09:37 → MEDSURG A 09:37
PROVIDERS: ADMIT Internal Medicine; ATTEND Internal Medicine
DX: L02.31 Cutaneous abscess of buttock (principal); I69.354 Hemiplegia and hemiparesis following cerebral infarction affecting left non-dominant side; B95.62 Methicillin resistant Staphylococcus aureus infection as the cause of diseases classified elsewhere; I12.9 Hypertensive chronic kidney disease with stage 1 through stage 4 chronic kidney disease, or unspecified chronic kidney disease; E11.22 Type 2 diabetes mellitus with diabetic chronic kidney disease; N18.3 Chronic kidney disease, stage 3 (moderate); D64.9 Anemia, unspecified; I25.10 Atherosclerotic heart disease of native coronary artery without angina pectoris; I10 Essential (primary) hypertension; E78.5 Hyperlipidemia, unspecified; M19.90 Unspecified osteoarthritis, unspecified site; F41.8 Other specified anxiety disorders; Z79.02 Long term (current) use of antithrombotics/antiplatelets; Z79.899 Other long term (current) drug therapy; Z95.1 Presence of aortocoronary bypass graft; Z98.890 Other specified postprocedural states; Z95.5 Presence of coronary angioplasty implant and graft
CPT/HCPCS: 36415; 80053; 82962; 83036; 84439; 84443; 85025; 87070; 87186; 93005; 93010; 97802; 99223; 99232; 99239

== ENCOUNTER 2017-01-18 09:31 | Outpatient (CLI) | END 2017-01-18 09:32 | disposition home or self-care (01) | LOC: WOUND 09:31 | PROVIDERS: ATTEND Nurse Practitioner Family | DX: L89.312 Pressure ulcer of right buttock, stage 2 (principal); E11.9 Type 2 diabetes mellitus without complications; I10 Essential (primary) hypertension; E78.5 Hyperlipidemia, unspecified | CPT/HCPCS: 11042; 99203 ==

== ENCOUNTER 2017-07-17 12:14 | Inpatient (IN) ==
[2017-07-17] MEDS ORDERED: TYLENOL PO PRN (12:46)
[2017-07-17] MEDS ORDERED: ATROPINE SULFATE PFS IVP PRN (12:46)
[2017-07-17] MEDS ORDERED: MORPHINE 4 MG/ML VIAL IVP PRN (12:46)
[2017-07-17] MEDS ORDERED: NITROSTAT SL PRN (12:46)
[2017-07-17] MEDS ORDERED: ZITHROMAX 500 MG in SODIUM CHLORIDE 250 ML IV SCH (13:00)
[2017-07-17] MEDS ORDERED: TUSSIONEX PO PRN (13:04)
--- NOTE | 2017-07-17 13:25 | DI ---
EXAM: Single view of the chest. History: Cough. Comparison: Chest radiograph 01/09/2017 Findings: Heart size is within normal limits. Atherosclerotic vascular calcifications. No focal co nsolidation. No appreciable pleural fluid and no pneumothorax. No acute osseous abnormalities. Impression: No acute cardiopulmonary process
[2017-07-17] MEDS: ROCEPHIN 1 GM in SODIUM CHLORIDE 50 ML IV SCH (13:32)
[2017-07-17] MEDS: DEXTROSE 5%-1/2NS IV SOLUTION 1,000 ML IV SCH (13:32)
[2017-07-17] MEDS: SOLU-CORTEF 250 MG IVP SCH ×2 (13:33→20:54)
[2017-07-17] MEDS: ZITHROMAX PO SCH (13:34)
[2017-07-17 13:50] VITALS: BMI 31.4
[2017-07-17] MEDS: XOPENEX 1.25 MG NEB SCH ×2 (17:26→23:42)
[2017-07-17] MEDS: HUMULIN R SUBCUT PRN (20:54)
[2017-07-17] MEDS: LEVEMIR SUBCUT SCH (20:55)
[2017-07-17] MEDS: REMERON PO SCH (20:58)
[2017-07-17] MEDS: DESYREL PO SCH (20:58)
[2017-07-17] MEDS: OMEGA-3 FISH OIL PO SCH (20:59)
[2017-07-17] MEDS ORDERED: TAMIFLU PO SCH (21:00)
[2017-07-17] MEDS ORDERED: INSULIN DETEMIR 100 UNIT SQ SCH (21:00)
[2017-07-18] MEDS: DEXTROSE 5%-1/2NS IV SOLUTION 1,000 ML IV SCH ×2 (02:03→17:41)
[2017-07-18] MEDS: SOLU-CORTEF 250 MG IVP SCH ×3 (05:18→21:17)
[2017-07-18] MEDS: HUMULIN R SUBCUT PRN ×4 (05:34→21:28)
[2017-07-18] MEDS: XOPENEX 1.25 MG NEB SCH ×4 (05:40→22:04)
[2017-07-18] MEDS ORDERED: NON-FORMULARY MEDICATION (Canagliflozin [Invokana] 100 MG) PO SCH (06:00)
[2017-07-18] MEDS ORDERED: FISH OIL PO SCH (09:00)
[2017-07-18] MEDS ORDERED: [UNRECOGNIZED DRUG - OTHER] PO SCH (09:00)
[2017-07-18] MEDS ORDERED: OMEGA PO SCH (09:00)
[2017-07-18] MEDS ORDERED: ZESTRIL PO SCH (09:00)
[2017-07-18] MEDS ORDERED: NON-FORMULARY MEDICATION (Rosuvastatin Calcium [Crestor] 20 MG) PO SCH (09:00)
[2017-07-18] MEDS ORDERED: FATTY ACIDS PO SCH (09:00)
[2017-07-18] MEDS ORDERED: NON-FORMULARY MEDICATION (Fenofibrate Nanocrystallized [Fenofibrate] 145 MG) PO SCH (09:00)
[2017-07-18] MEDS: NON-FORMULARY MEDICATION (Canagliflozin [Invokana] 100 MG) PO SCH (09:20)
[2017-07-18] MEDS: ROCEPHIN 1 GM in SODIUM CHLORIDE 50 ML IV SCH (09:20)
[2017-07-18] MEDS: ZITHROMAX PO SCH (09:20)
[2017-07-18] MEDS: TAMIFLU PO SCH ×2 (09:21→21:28)
[2017-07-18] MEDS: OMEGA-3 FISH OIL PO SCH ×2 (09:21→21:27)
[2017-07-18] MEDS: HYDROCHLOROTHIAZIDE PO SCH (09:21)
[2017-07-18] MEDS: TRIGLIDE PO SCH (09:22)
[2017-07-18] MEDS: CRESTOR PO SCH (09:22)
[2017-07-18] MEDS: PLAVIX PO SCH (09:22)
[2017-07-18] MEDS: ZESTRIL PO SCH (09:22)
[2017-07-18] MEDS: CELEXA PO SCH (09:23)
[2017-07-18] MEDS: ASPIRIN EC PO SCH (09:23)
[2017-07-18] MEDS: DESYREL PO SCH (21:28)
[2017-07-18] MEDS: REMERON PO SCH (21:28)
[2017-07-18] MEDS: LEVEMIR SUBCUT SCH (21:29)
[2017-07-18] MEDS: VISTARIL INJ IM PRN (23:01)
[2017-07-19] MEDS: XOPENEX 1.25 MG NEB SCH ×4 (05:03→23:10)
[2017-07-19] MEDS: SOLU-CORTEF 250 MG IVP SCH (05:44)
[2017-07-19] MEDS: HUMULIN R SUBCUT PRN ×4 (06:11→21:07)
[2017-07-19] MEDS: NON-FORMULARY MEDICATION (Canagliflozin [Invokana] 100 MG) PO SCH (08:21)
[2017-07-19] MEDS: ROCEPHIN 1 GM in SODIUM CHLORIDE 50 ML IV SCH (08:21)
[2017-07-19] MEDS: CELEXA PO SCH (08:22)
[2017-07-19] MEDS: HYDROCHLOROTHIAZIDE PO SCH (08:22)
[2017-07-19] MEDS: TAMIFLU PO SCH ×2 (08:22→20:53)
[2017-07-19] MEDS: TRIGLIDE PO SCH (08:23)
[2017-07-19] MEDS: PLAVIX PO SCH (08:23)
[2017-07-19] MEDS: OMEGA-3 FISH OIL PO SCH ×2 (08:23→20:54)
[2017-07-19] MEDS: ZITHROMAX PO SCH (08:23)
[2017-07-19] MEDS: CRESTOR PO SCH (08:23)
[2017-07-19] MEDS: ZESTRIL PO SCH (08:24)
[2017-07-19] MEDS: ASPIRIN EC PO SCH (08:24)
[2017-07-19] MEDS: DEXTROSE 5%-1/2NS IV SOLUTION 1,000 ML IV SCH (08:34)
--- NOTE | 2017-07-19 11:01 | PCM.PROG ---
Attending Provider: ATTENDING PROVIDER: Dr. JUDITH MONTANEZ DATE OF SERVICE: 07/19/17 SUBJECTIVE: This 71 year old WHITE/ F was hospitalized 07/17/17 with flu type symptoms. Condition improved, feeling better. Bronchitis seems to have resolved. No aches or pains. No fever or chills. Hyperglycemia seems to be secondary to steroids. Will discontinue IV steroids and put on oral 10 mg. Will continue antibiotics and nebs treatment. Hydration status improved with some improvement in kidney function, has chronic kidney disease. REVIEW OF SYSTEMS: CONSTITUTIONAL: No night sweats. No fatigue, malaise, lethargy. No fever or chills. HEENT: Eyes: No visual changes. No eye pain. No eye discharge. ENT: No runny nose. No epistaxis. No sinus pain. No odynophagia. No congestion. RESPIRATORY: No cough, no congestion. No hemoptysis. No shortness of breath. CARDIOVASCULAR: No angina symptoms. No CHF symptoms. No coronary insufficiency symptoms. No atypical chest pain for CAD. No palpitations. No orthopnea.. GASTROINTESTINAL: Improved appetite. No abdominal pain. No nausea or vomiting. No diarrhea or constipation. No hematemesis. No hematochezia. GENITOURINARY: No urgency. No frequency. No dysuria. No hematuria. No obstructive symptoms. No discharge. No pain. No significant abnormal bleeding. MUSCULOSKELETAL: No musculoskeletal pain; no joint swelling. NEUROLOGICAL: Awake, alert, oriented to time, place and person. No headache. No neck pain. No syncope. No seizures. No dizziness. PSYCHIATRIC: Not anxious. No depression. No suicidal thoughts. No homicidal thoughts. SKIN: No rash. No lesions. No wounds. ENDOCRINE: No unexplained weight loss. No weight gain. HEMATOLOGIC/LYMPHATIC: No anemia. No purpura. No petechiae. No prolonged or excessive bleeding. No palpable lymph nodes. PHYSICAL EXAMINATION: GENERAL: The patient is awake, alert and oriented, lying in bed in no distress. VITAL SIGNS: Temperature 96.9 F, Pulse 83, Respiratory Rate 22, BP 106/58, Pulse Ox 95% HEENT: Head normocephalic, atraumatic. Eyes: Extraocular muscles are intact. Pupils are equal, round and reactive to light and accommodation. Ears: No lesions. Nose appeared normal. Throat: No exudate or erythema. NECK: Supple. No JVD, no carotid bruit. No lymphadenopathy or thyromegaly. LUNGS: Decreased breath sounds. Clear to auscultation. Percussion note normal. Chest symmetrical. HEART: S1, S2, no S3. No murmurs. No cyanosis or clubbing. No ascites. Pulses: Dorsalis pedis and posterior tibial pulses +1 to +2 both sides. ABDOMEN: Soft. Non-tender. Bowel sounds active. No CVA tenderness. No mass felt. EXTREMITIES: No edema. Full range of motion of all extremities, equal. NEUROLOGIC: No focal deficit. Cranial nerves II through XII are grossly intact. No headache, no double vision or headache. SKIN: Warm and dry. Intact. Turgor-normal. LYMPHATIC: No palpable lymph nodes/no lymphedema. MUSCULOSKELETAL: Normal joints with no swelling. Muscle tone is normal. LAB REVIEW: 07/19/17 04:30 07/19/17 04:30 07/19/17 04:30: Sodium 138, Potassium 3.4 L, Chloride 105, Carbon Dioxide 20 L, Anion Gap 16.4, BUN 33 H, Creatinine 1.58 H, Estimated GFR (MDRD) 32.00, BUN/ Creatinine Ratio 20.88, Glucose 407 H, Calcium 8.6, Total Bilirubin 0.3, AST 26 , ALT 37, Alkaline Phosphatase 65, Total Protein 6.3, Albumin 2.8 L, Globulin 3.5, Albumin/Globulin Ratio 0.80 07/19/17 04:30: WBC 8.13, RBC 4.03 L, Hgb 11.9 L, Hct 35.0 L, MCV 86.8, MCH 29.5 , MCHC 34.0, RDW Coeff of Consuelo 15.1 H, Plt Count 250, Neutrophils % (Manual) 77.0 H, Lymphocytes % (Manual) 17.0, Monocytes % (Manual) 5.0, Reactive Lymphocytes 1.0, Anisocytosis Not present ASSESSMENT: 1. Flu syndrome with bronchitis seems to be improving 2. Dehydration with good skin turgor, will d/c IV fluids 3. Hyperglycemia secondary to steroid therapy and diabetes. Will discontinue IV steroids. Will monitor blood sugar. PLAN: 1. Continue rest of treatment - continue antibiotics and nebs treatment. 2. Possible discharge tomorrow 3. Prednisone 10 mg once a day times 5 days 4. D/C IV fluids and IV steroids 5. Hgb A1C and TSH 6. Encouraged to eat good Plan and coordination of the patient's care discussed in the presence of Ring Sewer and nurse. CONDITION: Stable SCRIBED BY: ROSLYN LLOYD Associate Professor Of Criminal Justice scribed while in presence of service performed by Dr. JUDITH MONTANEZ on 07/19/17 ([id number])
[2017-07-19] MEDS: REMERON PO SCH (20:53)
[2017-07-19] MEDS: DESYREL PO SCH (20:53)
[2017-07-19] MEDS: VISTARIL INJ IM PRN (20:54)
[2017-07-19] MEDS: LEVEMIR SUBCUT SCH (20:55)
[2017-07-20] MEDS: XOPENEX 1.25 MG NEB SCH ×4 (05:10→23:18)
[2017-07-20] MEDS: CRESTOR PO SCH (08:44)
[2017-07-20] MEDS: NON-FORMULARY MEDICATION (Canagliflozin [Invokana] 100 MG) PO SCH (08:44)
[2017-07-20] MEDS: CELEXA PO SCH (08:45)
[2017-07-20] MEDS: PLAVIX PO SCH (08:45)
[2017-07-20] MEDS: HYDROCHLOROTHIAZIDE PO SCH (08:45)
[2017-07-20] MEDS: OMEGA-3 FISH OIL PO SCH ×2 (08:45→20:24)
[2017-07-20] MEDS: TRIGLIDE PO SCH (08:46)
[2017-07-20] MEDS: ZESTRIL PO SCH (08:46)
[2017-07-20] MEDS: ASPIRIN EC PO SCH (08:46)
[2017-07-20] MEDS: TAMIFLU PO SCH ×2 (08:46→20:27)
[2017-07-20] MEDS: ROCEPHIN 1 GM in SODIUM CHLORIDE 50 ML IV SCH (08:46)
[2017-07-20] MEDS: PREDNISONE PO SCH (08:46)
[2017-07-20] MEDS: K-DUR PO SCH ×3 (09:12→17:34)
[2017-07-20] MEDS: HUMULIN R SUBCUT PRN ×2 (17:34→20:25)
[2017-07-20] MEDS: VISTARIL INJ IM PRN (20:24)
[2017-07-20] MEDS: REMERON PO SCH (20:24)
[2017-07-20] MEDS: DESYREL PO SCH (20:24)
[2017-07-20] MEDS: LEVEMIR SUBCUT SCH (20:26)
[2017-07-21 05:04] VITALS: TEMP 97.8
[2017-07-21] MEDS: XOPENEX 1.25 MG NEB SCH ×2 (05:05→11:17)
[2017-07-21] MEDS: HYDROCHLOROTHIAZIDE PO SCH (09:56)
[2017-07-21] MEDS: OMEGA-3 FISH OIL PO SCH (09:58)
[2017-07-21] MEDS: ROCEPHIN 1 GM in SODIUM CHLORIDE 50 ML IV SCH (09:59)
[2017-07-21] MEDS: TRIGLIDE PO SCH (09:59)
[2017-07-21] MEDS: PREDNISONE PO SCH (10:00)
[2017-07-21] MEDS: CELEXA PO SCH (10:00)
[2017-07-21] MEDS: ASPIRIN EC PO SCH (10:01)
[2017-07-21] MEDS: PLAVIX PO SCH (10:02)
[2017-07-21] MEDS: K-DUR PO SCH ×2 (10:02→13:36)
[2017-07-21] MEDS: CRESTOR PO SCH (10:02)
[2017-07-21] MEDS: TAMIFLU PO SCH (10:03)
[2017-07-21] MEDS: ZESTRIL PO SCH (10:08)
[2017-07-21] MEDS: NON-FORMULARY MEDICATION (Canagliflozin [Invokana] 100 MG) PO SCH (10:09)
--- NOTE | 2017-07-21 10:40 | CM.DICTOOL ---
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 TUBAL LIGATION LAST VITALS Temp Pulse Resp BP Pulse Ox 97.8 F 84 18 117/66 96 07/21/17 05:04 07/21/17 05:04 07/21/17 05:04 07/21/17 05:04 07/21/17 05:04 ACTIVE HOME MEDICATIONS Acetaminophen (Tylenol) 650 mg PO Q4H PRN PRN Reason: Headache Aspirin (Aspirin Ec) 81 mg PO DAILYWM [facility] Last Admin: 07/20/17 08:46 Dose: 81 mg Citalopram Hydrobromide (Celexa) 30 mg PO DAILY [facility] Last Admin: 07/20/17 08:45 Dose: 30 mg Clopidogrel Bisulfate (Plavix) 75 mg PO DAILY [facility] Last Admin: 07/20/17 08:45 Dose: 75 mg Fenofibrate (Triglide) 160 mg PO DAILY [facility] Last Admin: 07/20/17 08:46 Dose: 160 mg Fish Oil ([place]-3 Fish Oil) 3,000 mg PO DAILY [facility] Last Admin: 07/20/17 08:45 Dose: 3,000 mg Fish Oil (Kar[place]-3 Fish Oil) 3,000 mg PO BEDTIME [facility] Last Admin: 07/20/17 20:24 Dose: 3,000 mg Hydrochlorothiazide (Hydrochlorothiazide) 12.5 mg PO DAILY [facility] Last Admin: 07/20/17 08:45 Dose: 12.5 mg Insulin Detemir (Levemir) 100 unit SUBCUT BEDTIME [facility] Last Admin: 07/20/17 20:26 Dose: 100 unit Lisinopril (Zestril) 2.5 mg PO DAILY [facility] Last Admin: 07/20/17 08:46 Dose: 2.5 mg Mirtazapine (Remeron) 15 mg PO BEDTIME [facility] Last Admin: 07/20/17 20:24 Dose: 15 mg Rosuvastatin Calcium (Crestor) 20 mg PO DAILY [facility] Last Admin: 07/20/17 08:44 Dose: 20 mg Trazodone HCl (Desyrel) 50 mg PO BEDTIME [facility] Last Admin: 07/20/17 20:24 Dose: 50 mg ALLERGIES erythromycin base Adverse Reaction (Unknown, Verified 01/09/17 12:43) NEW PRESCRIPTIONS: NEW MEDICATIONS: 1. KEFLEX 500MG TAKE 1 CAPSULE 2 TIMES A DAY FOR 5 DAYS. TAKE UNTIL ALL GONE. 2. PREDNISONE 10MG TAKE 1 TABLET 2 TIMES A DAY FOR 5 DAYS. TAKE WITH FOOD. 3. POTASSIUM 10MEQ TAKE 1 CAPSULE DAILY SMOKING: N/A DISEASE SPECIFIC EDUCATION: FLU BRONCHTIS DEHYDRATION DIABETES MEDICATIONS DIET LAB REVIEW: 07/21/17 05:30 07/21/17 05:30 07/21/17 05:30: Sodium 141, Potassium 4.1, Chloride 108 H, Carbon Dioxide 25, Anion Gap 12.1, BUN 29 H, Creatinine 1.22, Estimated GFR (MDRD) 44.00, BUN/ Creatinine Ratio 23.77, Glucose 85, Calcium 8.9, Total Bilirubin 0.4, AST 25, ALT 37, Alkaline Phosphatase 46 L, Total Protein 6.1, Albumin 2.7 L, Globulin 3.4, Albumin/Globulin Ratio 0.79 07/21/17 05:30: WBC 8.05, RBC 4.60, Hgb 13.2, Hct 41.8 D, MCV 90.9, MCH 28.7, MCHC 31.6 L, RDW Coeff of Consuelo 16.0 H, Plt Count 168, Immature Gran % (Auto) 0.5 , Neut % (Auto) 44.9, Lymph % (Auto) 46.3, [place] % (Auto) 7.3, Eos % (Auto) 0.6, Baso % (Auto) 0.4, Immature Gran # (Auto) 0.0, Neut # (Auto) 3.6, Lymph # (Auto ) 3.7 H, [place] # (Auto) 0.6, Eos # (Auto) 0.1, Baso # (Auto) 0.0 PLAN: DISCHARGE HOME TODAY 07/21/17. CONTINUE HOME MEDICATIONS PER NURSING SHEET EXCEPT: 1. STOP INVOKANA 2. DECREASE ZESTRIL TO 2.5 MG PO DAILY (YOU HAVE 5MG TABLETS AT HOME SO TAKE 1/ 2 TABLET DAILY) NEW MEDICATIONS: 1. KEFLEX 500MG TAKE 1 CAPSULE 2 TIMES A DAY FOR 5 DAYS. TAKE UNTIL ALL GONE. 2. PREDNISONE 10MG TAKE 1 TABLET DAILY A DAY FOR 5 DAYS. TAKE WITH FOOD. 3. POTASSIUM 10MEQ TAKE 1 CAPSULE DAILY DIET: 2400 CALORIE DIET ACTIVITY: GRADUALLY RESUME ACTIVITIES. AVOID CROWDS. AVOID EXTREME COLD WEATHER. FOLLOW UP WITH DR. MONTANEZ ON MondayJuly AT 930 AM. IF UNABLE TO KEEP APPOINTMENT PLEASE CALL. [phone]. IS A DNR. SITTING UP IN BED. ALERT AND ORIENTED X 4. DR. MONTANEZ INTO SEE PATIENT. PATIENT STATES FEELING BETTER AND READY TO GO HOME. PLAN OF CARE DISCUSSED PER DR. MONTANEZ INCLUDING DISCHARGE MEDICATIONS AND FOLLOW UP. PATIENT VERBALIZES UNDERSTANDING. VITAL SIGNS ARE STABLE. HAS BEEN AFEBRILE. POX 96% ON ROOM AIR. HEART TONES ARE REGULAR WITH TELEMETRY REVEALING SINUS RHYTHM. NO C/O PAIN OR DISCOMFORT. LUNGS ARE CLEAR WITH DIMINISHED BREATH SOUNDS. HAS NON-PRODUCTIVE COUGH. IS DYSPNEIC WITH ACTIVITY. ABDOMEN IS SOFT, NON-TENDER WITH BOWEL SOUNDS POSITIVE IN ALL 4 QUADS. LAST BM 07/19/17. PEDAL PULSES POSITIVE WITHOUT EDEMA. HAS WEAKNESS IN LEFT UPPER AND LOWER EXTREMITIES. HAS BRUISE TO LLE, LEFT SHOULDER AND COCCYX FROM FALLING AT HOME. HAS SALINE LOCK IN RIGHT FOREARM SITE IS CLEAR. IS FALL RISK WITH FALL PRECAUTIONS IN USE. IS A 1 PERSON ASSIST WITH USE OF QUAD CANE WITH UNSTEADY/SLOW GAIT. WEARS BRACE ON LLE. DR. JUDITH MONTANEZ MD Aubree MEJIA APRN
[2017-07-21 14:01] VITALS: BP 96/56
--- NOTE | 2017-07-21 15:18 | HP ---
DATE OF SERVICE: 07/17/17 REASON FOR HOSPITALIZATION/HISTORY OF PRESENT ILLNESS: Tired, coughing. Sugar up x4 days. No fever. Yellow sputum/Poor appetite x3 days. Aches and pains. PAST MEDICAL HISTORY: CVA left hemiparesis CEA Chronic kidney disease Diabetes Mellitus type 2 Dyslipidemia Hypertension CAD with stent Depression PAST SURGICAL HISTORY: Balloon Angioplasty Tumor left leg Tubal ligation Stent REVIEW OF SYSTEMS: CONSTITUTIONAL: No fever, Fatigue. HEENT: Sinus drainage, no sore throat. RESPIRATORY: Cough, no congestion. CARDIOVASCULAR: Atypical chest pain for coronary artery disease, sharp pain right. No angina, CHF symptoms, palpitations. Shortness of breath mild with exertion. GASTROINTESTINAL: No melena or abdominal pain. No GERD. GENITOURINARY: No hematuria, no prostatism, Polyuria. CONSULTING NETWORKING ENGINEER: No blackout, no dizziness, no headache, no double vision. GAIT: Wheelchair MUSCULOSKELETAL: Osteoarthritis pain, no joint swelling. ENDOCRINE: No weight loss, no weight gain. SKIN: Not dry, no rash. PSYCHIATRIC: Not anxious, no depression, no suicidal thoughts, no homicidal thoughts. SOCIAL HISTORY: Marital Status:. Alcohol Usage: No. Tobacco Usage: Quit. FAMILY HISTORY: Father Mother Brother 2 Sister 1 MEDICATIONS: Tricor 145mg PO daily Trazodone 50mg PO daily Lisinopril 5mg PO daily Levemir inject 100 unl by subcut route as per insulin sliding scale protocol one time per day Crestor 20 PO daily Clopidogrel 75mg PO daily Invokana 100mg PO daily before the first meal of the day Hydrochlorothiazide 25mg PO daily Celexa 20mg take one and half tablet PO daily Mirtazapine 15mg PO daily before bedtime Fish oil 6 times per day Aspirin 81mg Po daily Senna 2 Q AM ALLERGIES: Erythromycin PHYSICAL EXAMINATION: V/S: Pulse 92, blood pressure 110/70, temperature 98, O2 sat 95%. GENERAL APPEARANCE: Oriented times three. HEENT: Yellow drainage. Dry Skin. NECK: No JVP, no bruits. RESPIRATORY: Lungs are clear and decreased breath sounds. CARDIOVASCULAR: S1, S2, no S3, no murmurs. No cyanosis, clubbing. No ascites. GI/ABDOMEN: No tenderness. Bowel sounds are active. EXTREMITIES: edema, pulses +1, equal. CONSULTING NETWORKING ENGINEER: Deep tendon reflexes, sensory, motor and gait all normal. RECTAL: Refused/ PELVIC: Advised yearly, refused. ASSESSMENT: 1. Acute bronchitis 2. Flu Syndrome 3. Dehydration 4. Pleuritic pain 5. MET syndrome 6. Hypertension 7. CAD with stent 8. Dyslipidemia 9. Diabetes Mellitus type 2 10.CVA Left hemiparesis, Left foot drop 11.Depression 12.Chronic kidney disease, stage 3 13.CEA right 14.Restless leg syndrome 15.Vitamins B12 deficiency PLAN: 1. Admit regular 2. Routine telemetry orders 3. Sputum for culture and sensitivity 4. Diet 2500 calories ADA 5. Sliding scale with insulin coverage Four time a day 6. Solu-Cortef 125mg IV piggyback 8 hourly 7. Rocephin 1 gram IV piggyback 4 hours 8. Zithromax 500mg PO daily x 3 days 9. Xopenex Q 6 hours 10.ABG 11.Oxygen 1-2 liters nasal canula 12.1000cc D5 1/2 normal saline 1-2 hours 13.Tussionex 1 tsp. PO twice a day daily PRN 14.Continue all home medications. TIME SPENT: More than 70 minutes. MTDD
--- NOTE | 2017-07-24 09:10 | ECHO2D ---
Date of Exam: 07/21/17 Ordering Physician: DR. JUDITH MONTANEZ Room #: 107 Reason for Echo: WEAKNESS, DYSPNEA, HTN, DM, HX CVA, ANGIOPLASTY 1993 M-Mode Normal Adult Results LV Dimensions Normal Adult Results AoV Opening excursions >1.6 >1.6 LVEDD-base- 3.5-5.8 4.0 Ao root dimensions 2.0-3.7 2.8 LVESD-base- 3.1-4.6 L. Atrium dimensions 1.9-3.8 3.7 Post. Wall thickness 0.8-1.1 1.1 IV septum (thickness) 0.7-1.2 1.0 Post. Wall excursion 0.72-1.3 NORMAL Septal motion NORMAL Systolic motion R. Ventricular cavity 1.5-2.0 NORMAL LVEF 60% 60% Paradoxical septal wall motion NORMAL 2-D : 2-D M Mode Echocardiogram was performed using apical four chamber and left parasternal long and short axis views. Mitral, tricuspid and aortic valves appear to be normal. Contractility of the left ventricle seems to be normal, so is the cavity size. Left atrial cavity size and aortic root appear to be normal. There is no pericardial effusion. There is no thrombus noted in the left ventricular or left aortic cavity. No mitral valve prolapse noted. M-MODE: MV: NORMAL AV: NORMAL TV: NORMAL PV: CHAMBER SIZE: NORMAL WALL MOTION: NORMAL PERICARDIUM: NORMAL INTERPRETATION: 1. NORMAL 2 "D" "M" MODE ECHO [facility]
--- NOTE | 2017-07-24 10:47 | PN ---
DATE OF SERVICE: 07/21/17 SUBJECTIVE: 71 year old white female hospitalized with acute bronchitis/pneumonitis. The patient's condition has improved. She was Influenza B positive. Bronchitis has resolved and she is ready to go home. The patient had potassium of 2.6 yesterday and today it is 4.1. The kidney functions are stable. Appetite has improved. PHYSICAL EXAMINATION: VITALS: Temperature 97.8, pulse 84, respiratory rate 18, blood pressure 117/66 and pulse ox 96%. HEENT: Head normocephalic, atraumatic. Eyes: Extraocular muscles are intact. Pupils are equal, round and reactive to light and accommodation. Ears: No lesions. Nose appeared normal. Throat: No exudate or erythema. NECK: Supple. No JVD, no carotid bruit. No lymphadenopathy or thyromegaly. LUNGS: Clear to auscultation. Percussion note normal. Chest symmetrical. HEART: S1, S2, no S3. No murmurs. No cyanosis or clubbing. No ascites. Pulses: Dorsalis pedis and posterior tibial pulses +1 to +2 both sides. ABDOMEN: Soft. Nontender. Bowel sounds active. No CVA tenderness. No mass felt. EXTREMITIES: No edema. Full range of motion of all extremities, equal. NEUROLOGIC: No focal deficit. Cranial nerves II through XII are grossly intact. No headache, no double vision or headache. SKIN: Not dry. Intact. Turgor - normal. LYMPHATIC: No palpable lymph nodes/no lymphedema. MUSCULOSKELETAL: Normal joints with no swelling. Muscle tone is normal. ASSESSMENT: 1. Acute bronchitis/Pneumonitis 2. Influenza B 3. Dehydration, seems to be resolving PLAN: 1. Discharge the patient home. TIME SPENT: More than 30 minutes. Plan and coordination of the patient's care discussed in the presence of nurse. TOYIN
--- NOTE | 2017-07-24 11:07 | DS ---
DATE OF SERVICE: 07/21/17 FINAL DIAGNOSIS: 1. Influenza B 2. Acute bronchitis 3. Dehydration 4. Hyperglycemia 5. History of hypertension 6. Dyslipidemia 7. Diabetes Type 2, with HGBA 1c 8.5 this admit 8. CVA with left hemiparesis, 2002 9. 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 DISCHARGE INSTRUCTIONS: Discharge home today. 07/21/17. Continue home medication per nursing sheet except; stop Invokana, Decrease Zestril to 2.5mg PO daily ( You have 5mg tablet at home so take 1/2 tablet daily). Followup with Dr. Mullen on July 27 at 9:30am. MEDICATIONS AT DISCHARGE: Tylenol 650mg PO Q 4 hours PRN Aspirin 81mg PO daily Celexa 30mg PO daily Plavix 75mg Po daily Triglide 160mg Po daily [place] 3 Fish oil 3,000mg PO daily [place] 3 Fish oil 3,000mg PO bedtime Hydrochlorothiazide 12.5mg PO daily Levemir 100 unit SUBCUT bedtime Zestril 2.5mg PO daily Remeron 15mg PO daily Crestor 20mg Po daily Desyrel 50mg PO bedtime ALLERGIES: Erythromycin NEW PRESCRIPTIONS: Keflex 500mg take one capsule two times a day for 5 days. Take until all gone. Prednisone 10mg take one tablet two times a day for 5 days. Take with food. Potassium 10meq take one capsule daily DIET INSTRUCTIONS: 2400 calorie diet ACTIVITY: Gradually resume activities. Avoid crowds. Avoid extreme cold weather. SMOKING: N/A DISEASE SPECIFIC EDUCATION: Flu Bronchitis Dehydration Diabetes Medications Diet HOSPITAL COURSE: 71 year old white female hospitalized with bronchitis and influenza B positive and dehydration. The patient's condition improved with IV antibiotics, steroids and NEBS treatment. The patient was taken off Invokana. The patient's appetite has improved and her aches and pains have subsided. Bronchitis symptoms are under control. The patient was discharged on Keflex and steroids. The patient's patient's condition at the time of discharge is stable. She had Hypokalemia which has resolved now. Potassium on discharge is 4.1. CONDITION: Stable. TIME SPENT: More than 60 minutes. MTDD
--- NOTE | 2017-07-24 11:08 | PN ---
07/17/17: Level 5 07/18/17: Intermediate 07/19/17: Intermediate 07/20/17: Intermediate 07/21/17: D as in discharge MTDD
--- NOTE | 2017-07-24 11:15 | PN ---
DATE OF SERVICE: 07/20/17 SUBJECTIVE: 71-year-old white female hospitalized with flu type of symptoms. The patient had influenza B positive. She has acute bronchitis, seems to be recovering. The patient's creatinine and BUN 1.5 and 33. The patient's potassium was 2.6 this morning. Potassium supplements will be given. REVIEW OF SYSTEMS: CONSTITUTIONAL: No night sweats. No fatigue, malaise, lethargy. No fever or chills. HEENT: Eyes: No visual changes. No eye pain. No eye discharge. ENT: No runny nose. No epistaxis. No sinus pain. No sore throat. No odynophagia. No congestion. RESPIRATORY: No cough, no congestion. No hemoptysis. No shortness of breath. CARDIOVASCULAR: No angina symptoms. No CHF symptoms. No atypical chest pain for CAD. No palpitations. No orthopnea. GASTROINTESTINAL: No abdominal pain. No nausea or vomiting. No diarrhea or constipation. No hematemesis. No hematochezia. GENITOURINARY: No urgency. No frequency. No dysuria. No hematuria. No obstructive symptoms. No discharge. No pain. No significant abnormal bleeding. MUSCULOSKELETAL: No musculoskeletal pain; no joint swelling. NEUROLOGICAL: No headache. No neck pain. No syncope. No seizures. No dizziness. PSYCHIATRIC: Not anxious. No depression. No suicidal thoughts. No homicidal thoughts. SKIN: No rash. No lesions. No wounds. ENDOCRINE: No unexplained weight loss. No weight gain. HEMATOLOGIC/LYMPHATIC: No anemia. No purpura. No petechiae. No prolonged or excessive bleeding. No palpable lymph nodes. PHYSICAL EXAMINATION: GENERAL: The patient is oriented to time, place and person. VITAL SIGNS: Temperature 97.7, pulse 72, respiratory rate 18, BP 90/50, pulse ox 90%. HEENT: Head normocephalic, atraumatic. Eyes: Extraocular muscles are intact. Pupils are equal, round and reactive to light and accommodation. Ears: No lesions. Nose appeared normal. Throat: No exudate or erythema. NECK: Supple. No JVD, no carotid bruit. No lymphadenopathy or thyromegaly. LUNGS: Decreased breath sounds but clear to auscultation. Percussion note normal. Chest symmetrical. HEART: S1, S2, no S3. No murmurs. No cyanosis or clubbing. No ascites. Pulses: Dorsalis pedis and posterior tibial pulses +1 to +2 both sides. ABDOMEN: Soft. Nontender. Bowel sounds active. No CVA tenderness. No mass felt. EXTREMITIES: No edema. Full range of motion of all extremities, equal. NEUROLOGIC: No focal deficit. Cranial nerves II through XII are grossly intact. No headache, no double vision or headache. SKIN: Not dry. Intact. Turgor - normal. LYMPHATIC: No palpable lymph nodes/no lymphedema. MUSCULOSKELETAL: Normal joints with no swelling. Muscle tone is normal. LABS: Still to be reported. ASSESSMENT: 1. Hypokalemia 2. Influenza B 3. Dehydration 4. Chronic kidney disease 5. Hypertension PLAN: 1. Continue to encourage patient to drink fluids. Blood sugar is running high because of steroids. 2. The patient's potassium is low, will give potassium supplements and monitor the patient's potassium level. TIME SPENT: More than 30 minutes. CONDITION: Stable Plan and coordination of the patient's care discussed in the presence of nurse. TOYIN
--- NOTE | 2017-07-25 09:35 | PN ---
DATE OF SERVICE: 07/18/17 SUBJECTIVE: 71-year-old white female hospitalized with acute bronchitis. The patient had influenza B positive. She was dehydrated. She is feeling a lot better. She says that her appetite has improved. REVIEW OF SYSTEMS: CONSTITUTIONAL: No night sweats. No fatigue, malaise, lethargy. No fever or chills. HEENT: Eyes: No visual changes. No eye pain. No eye discharge. ENT: No runny nose. No epistaxis. No sinus pain. No sore throat. No odynophagia. No congestion. RESPIRATORY: Mild cough. No congestion. No hemoptysis. No shortness of breath. No PND. CARDIOVASCULAR: No angina symptoms. No CHF symptoms. No atypical chest pain for CAD. No palpitations. No orthopnea. GASTROINTESTINAL: No abdominal pain. No nausea or vomiting. No diarrhea or constipation. No hematemesis. No hematochezia. GENITOURINARY: No urgency. No frequency. No dysuria. No hematuria. No obstructive symptoms. No discharge. No pain. No significant abnormal bleeding. MUSCULOSKELETAL: No musculoskeletal pain; no joint swelling. NEUROLOGICAL: No headache. No neck pain. No syncope. No seizures. No dizziness. PSYCHIATRIC: Not anxious. No depression. No suicidal thoughts. No homicidal thoughts. SKIN: No rash. No lesions. No wounds. ENDOCRINE: No unexplained weight loss. No weight gain. HEMATOLOGIC/LYMPHATIC: No anemia. No purpura. No petechiae. No prolonged or excessive bleeding. No palpable lymph nodes. PHYSICAL EXAMINATION: GENERAL: The patient is oriented to time, place and person. VITAL SIGNS: Temperature 96.6, pulse 70, respiratory rate 20, BP 93/58, pulse ox 93%. HEENT: Head normocephalic, atraumatic. Eyes: Extraocular muscles are intact. Pupils are equal, round and reactive to light and accommodation. Ears: No lesions. Nose appeared normal. Throat: No exudate or erythema. NECK: Supple. No JVD, no carotid bruit. No lymphadenopathy or thyromegaly. LUNGS: Decreased breath sounds but clear to auscultation. Percussion note normal. Chest symmetrical. HEART: S1, S2, no S3. No murmurs. No cyanosis or clubbing. No ascites. Pulses: Dorsalis pedis and posterior tibial pulses +1 to +2 both sides. ABDOMEN: Soft. Nontender. Bowel sounds active. No CVA tenderness. No mass felt. EXTREMITIES: No edema. Full range of motion of all extremities, equal. NEUROLOGIC: No focal deficit. Cranial nerves II through XII are grossly intact. No headache, no double vision or headache. SKIN: Warm, dry. Intact. Turgor - better LYMPHATIC: No palpable lymph nodes/no lymphedema. MUSCULOSKELETAL: Normal joints with no swelling. Muscle tone is normal. LABS: Hemoglobin 11.7, hematocrit 35, WBC 4,100, normal differential. Creatinine 1.7, BUN 37, potassium 3.8, glucose 372. ASSESSMENT: 1. INFLUENZA B 2. ACUTE BRONCHITIS 3. DEHYDRATION 4. HYPOTENSION 5. HYPERGLYCEMIA 6. ANEMIA 7. CHRONIC KIDNEY DIEASE LIKELY RENAL AZOTEMIA PLAN: 1. Continue IV fluids. 2. The patient is explained about blood sugar which is high because of steroids. 3. Hypotension is from dehydration. 4. Will continue to monitor the patient's cardiovascular status. 5. The patient doesn't have any fluid overload. 6. Continue antibiotics, steroids, Tamiflu. CONDITION: Stable TIME SPENT: More than 30 minutes. Plan and coordination of the patient's care discussed in the presence of nurse. TOYIN
--- NOTE | 2017-08-07 14:29 | DS ---
DATE OF SERVICE: 07/21/17 FINAL DIAGNOSIS: 1. INFLUENZA B 2. ACUTE BRONCHITIS 3. DEHYDRATION 4. HYPERGLYCEMIA 5. HISTORY OF HYPERTENSION 6. DYSLIPIDEMIA 7. DIABETES MELLITUS TYPE 2 WITH HGB A1C 8.5 THIS ADMIT 8. CVA WITH LEFT HEMIPARESIS 2002 9. LEFT HEMIPARESIS 10. CKD, STAGE 3 11. RESTLESS LEG SYNDROME 12. VITAMIN B12 DEFICIENCY 13. BALLOON ANGIOPLASTY, 1993 14. CORONARY STENT APPLICATION 15. CAROTID ENDARTERECTOMY, RIGHT 16. DEPRESSION 17. VITAMIN B12 DEFICIENCY 18. OSTEOARTHRITIS 19. 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 TUBAL LIGATION DISCHARGE INSTRUCTIONS: Followup appointment: Dr. Mullen on July at 9:30 a.m. MEDICATIONS AT DISCHARGE: Tylenol 650 mg p.o. q.4h p.r.n. Aspirin 81 mg p.o. daily with meal NORMA Celexa 30 mg p.o. daily NORMA Plavix 75 mg p.o. daily NORMA Triglide 160 mg p.o. daily NORMA Huntly-3 Fish Oil 3000 mg p.o. daily NORMA Hydrochlorothiazide 12.5 mg p.o. daily NORMA Levemir 100 unit subcut bedtime NORMA Zestril 2.5 mg p.o. daily NORMA Remeron 15 mg p.o. bedtime NORMA Crestor 20 mg p.o. daily NORMA Desyrel 50 mg p.o. bedtime NORMA MEDICATION CHANGES: Stop Invokana Decrease Zestril to 2.5 mg p.o. daily (you have 5 mg tablets at home so take 1/ 2 tablet daily) NEW PRESCRIPTIONS: Keflex 500 mg one capsule two times a day for 5 days. Take until all gone. Prednisone 10 mg one tablet two times a day for 5 days. Take with food. Potassium 10 mEq one capsule daily. DIET INSTRUCTIONS: 2400 calorie diet ACTIVITY: Gradually resume activities. Avoid crowds. Avoid extreme cold weather. SMOKING: N/A DISEASE SPECIFIC EDUCATION: Flu Bronchitis Dehydration Diabetes Medications Diet HOSPITAL COURSE: This is a white female with a history of COPD and history of CVA who presented to our office with cough, shortness of breath. She had been running a low grade fever, was experiencing some extreme weakness. She was admitted, tested positive for Influenza B. Kidney function was slightly elevated showing dehydration. She was admitted, placed on IV fluids, D5 1/2 NS at 75 cc/hr. We started on Rocephin 1 gm IV daily along with Zithromax 500 mg p.o. daily. She started on Xopenex neb treatments q.6hr scheduled. Chest x-ray revealed no pneumonia, just changes associated with bronchitis. Again, her kidney function was slightly elevated consistent with dehydration. She was also somewhat hypotensive on admission and this improved with IV fluids over the course of the first 48 hours. Her kidney function slowly improved. Today, on day of discharge BUN 29, creatinine 1.22, sodium 141, potassium 4.1. After the first 24 hours, she remained afebrile although did experience weakness and coughing. After the positive flu B she was started on Tamiflu 75 mg p.o. b.i.d. Yesterday on 07/20/17 her potassium was low at 2.6. She had not been having any diarrhea. We started her on 40 mEq t.i.d. and today on day of discharge, her potassium is back up to normal at 4.1. We will discharge her home with 10 mEq daily for the next 30 days. She has an inhaler that she can use at home. She will be discharged with Keflex 500 mg b.i.d. for the next five days along with Prednisone 10 mg daily for the next 5 days, the potassium. She has finished her 5 day course of Tamiflu. She is to resume activities as tolerated. She has oxygen at home that she uses as a p.r.n. basis. She currently lives with her daughter who will be there for assistance. Her vital signs have remained stable. Again after the first 48 hours her blood pressure became normotensive today. Temperature 97.8, heart rate 84, respirations 18, BP 117/66, pulse ox 96 % on room air. We will discharge her home in stable condition and followup with her next week. TIME SPENT: More than 60 minutes. TOYIN
== END 2017-07-21 16:45 | disposition home or self-care (01) | DRG 194 ==
LOC: MEDSURG A 12:14
PROVIDERS: ADMIT Internal Medicine; ATTEND Internal Medicine
DX: J10.1 Influenza due to other identified influenza virus with other respiratory manifestations (principal); I69.954 Hemiplegia and hemiparesis following unspecified cerebrovascular disease affecting left non-dominant side; J20.9 Acute bronchitis, unspecified; E86.0 Dehydration; R06.02 Shortness of breath; I95.9 Hypotension, unspecified; E11.65 Type 2 diabetes mellitus with hyperglycemia; I10 Essential (primary) hypertension; E11.22 Type 2 diabetes mellitus with diabetic chronic kidney disease; I12.9 Hypertensive chronic kidney disease with stage 1 through stage 4 chronic kidney disease, or unspecified chronic kidney disease; N18.3 Chronic kidney disease, stage 3 (moderate); E53.8 Deficiency of other specified B group vitamins; F32.9 Major depressive disorder, single episode, unspecified; E87.6 Hypokalemia; E78.5 Hyperlipidemia, unspecified; G25.81 Restless legs syndrome; Z79.01 Long term (current) use of anticoagulants; Z79.4 Long term (current) use of insulin; Z95.5 Presence of coronary angioplasty implant and graft
CPT/HCPCS: 36415; 80053; 81001; 82550; 82553; 82803; 82962; 83036; 84443; 84484; 85007; 85025; 87070; 87502; 93005; 93010; 94640; 94644